=== PATIENT | male | born 1985 | race American Indian/Alaskan Native ===

== ENCOUNTER 2019-04-14 12:57 | Emergency (ER) | payer SELFPAY ==
[2019-04-14 13:55] VITALS: BP 109/59
--- NOTE | 2019-04-14 15:39 | Emergency Department Report ---
- General Chief Complaint: Upper Respiratory Infection Stated Complaint: CHEST COLD Time Seen by Provider: 04/14/19 15:13 Source: patient Mode of arrival: Ambulatory Limitations: No Limitations - History of Present Illness Initial Comments: Patient is a 34-year-old male who has a history of smoking who is presenting with a cough. Patient states cough productive of yellow-green sputum. He's had subjective fevers and chills. Cough has been present for week and a half. Patient denies any neck stiffness or throat nausea vomiting or diarrhea. - Related Data Previous Rx's Medication Instructions Recorded Last Taken Type Albuterol Sulfate [Ventolin HFA] 2 puff IH Q6H PRN #1 hfa.aer.ad 09/25/16 Unknown Rx Ibuprofen [Motrin] 600 mg PO Q8H PRN #15 tablet 09/25/16 Unknown Rx guaiFENesin/CODEINE [Robitussin AC] 10 ml PO BID PRN #100 ml 09/25/16 Unknown Rx ALBUTEROL Inhaler (OR & NICU) 2 puff IH QID PRN #1 inhalation 04/14/19 Unknown Rx [ProAir HFA Inhaler] Azithromycin [Zithromax Z-DELVIN] 250 mg PO DAILY #6 tablet 04/14/19 Unknown Rx Benzonatate [Tessalon Perles] 100 mg PO Q8HR #10 capsule 04/14/19 Unknown Rx predniSONE [Deltasone] 20 mg PO QDAY #5 tab 04/14/19 Unknown Rx Allergies Allergy/AdvReac Type Severity Reaction Status Date / Time No Known Allergies Allergy Verified 04/14/19 12:59 ED Review of Systems ROS: Stated complaint: CHEST COLD Other details as noted in HPI Comment: All other systems reviewed and negative ED Past Medical Hx - Past Medical History Previous Medical History?: Yes Hx Headaches / Migraines: Yes - Surgical History Past Surgical History?: No - Social History Smoking Status: Current Some Day Smoker Substance Use Type: Marijuana - Medications Home Medications: Home Medications Medication Instructions Recorded Confirmed Last Taken Type Albuterol Sulfate [Ventolin HFA] 2 puff IH Q6H PRN #1 hfa.aer.ad 09/25/16 Unknown Rx Ibuprofen [Motrin] 600 mg PO Q8H PRN #15 tablet 09/25/16 Unknown Rx guaiFENesin/CODEINE [Robitussin AC] 10 ml PO BID PRN #100 ml 09/25/16 Unknown Rx ALBUTEROL Inhaler (OR & NICU) 2 puff IH QID PRN #1 inhalation 04/14/19 Unknown Rx [ProAir HFA Inhaler] Azithromycin [Zithromax Z-DELVIN] 250 mg PO DAILY #6 tablet 04/14/19 Unknown Rx Benzonatate [Tessalon Perles] 100 mg PO Q8HR #10 capsule 04/14/19 Unknown Rx predniSONE [Deltasone] 20 mg PO QDAY #5 tab 04/14/19 Unknown Rx ED Physical Exam - General Limitations: No Limitations General appearance: alert, in no apparent distress - Head Head exam: Present: atraumatic, normocephalic - Eye Eye exam: Present: normal appearance - ENT ENT exam: Present: mucous membranes moist - Neck Neck exam: Present: normal inspection - Respiratory Respiratory exam: Present: normal lung sounds bilaterally, rhonchi. Absent: respiratory distress, wheezes, rales - Cardiovascular Cardiovascular Exam: Present: regular rate, normal rhythm, normal heart sounds. Absent: systolic murmur, diastolic murmur, rubs, gallop - GI/Abdominal GI/Abdominal exam: Present: soft, normal bowel sounds. Absent: distended, tenderness, guarding, rebound - Rectal Rectal exam: Present: deferred - Extremities Exam Extremities exam: Present: normal inspection - Back Exam Back exam: Present: normal inspection - Neurological Exam Neurological exam: Present: alert, oriented X3 - Psychiatric Psychiatric exam: Present: normal affect, normal mood - Skin Skin exam: Present: warm, dry, intact, normal color. Absent: rash ED Course Vital Signs 04/14/19 13:53 Temperature 98.0 F Pulse Rate 67 Respiratory 18 Rate Blood Pressure 109/59 [Right] O2 Sat by Pulse 100 Oximetry ED Medical Decision Making - Medical Decision Making Patient is a 34-year-old [place] male presented with productive cough and subjective fevers and has a history of smoking. Patient is treated for smoker's bronchitis. Patient given a Z-Delvin and prednisone and albuterol inhaler be discharged home. Critical care attestation.: If time is entered above; I have spent that time in minutes in the direct care of this critically ill patient, excluding procedure time. ED Disposition Clinical Impression: Smoker Acute bronchitis Qualifiers: Bronchitis organism: unspecified organism Qualified Code(s): J20.9 - Acute bronchitis, unspecified Disposition: DC-01 TO HOME OR SELFCARE Is pt being admited?: No Does the pt Need Aspirin: No Condition: Stable Instructions: Acute Bronchitis (ED) Referrals: DYLAN KERNS MD [Primary Care Provider] - 3-5 Days Time of Disposition: 15:39
== END 2019-04-14 15:50 | disposition home or self-care (01) ==
LOC: ED 12:57
DX: J20.9 Acute bronchitis, unspecified (principal); G43.909 Migraine, unspecified, not intractable, without status migrainosus; F17.200 Nicotine dependence, unspecified, uncomplicated; F12.10 Cannabis abuse, uncomplicated
CPT/HCPCS: 99282

== ENCOUNTER 2021-06-05 10:34 | Emergency (ER) | payer SELFPAY ==
[2021-06-05] MEDS ORDERED: ASPIRIN 325 MG TAB PO ONE (10:48)
[2021-06-05] MEDS ORDERED: hydrOXYzine HCL 25 MG TAB PO ONE (10:48)
[2021-06-05 10:49] VITALS: BP 111/43
--- NOTE | 2021-06-05 10:51 | Emergency Department Report ---
ED Chest Pain HPI - General Chief Complaint: Chest Pain Stated Complaint: CHEST PAIN Time Seen by Provider: 06/05/21 10:47 Source: patient Mode of arrival: Ambulatory Limitations: No Limitations - History of Present Illness Initial Comments: Patient is a 36-year-old male who presents emergency room with complaints of left-sided chest pain that began yesterday morning. Patient states that he has been working a lot and has had a lot of increased stress. He states he does do lifting at his job. He states his pain is worse with palpation and movement. He states that he also feels anxious as he has had increased stress. He states he has had similar symptoms before when his girlfriend had a miscarriage. He denies any radiation of the pain, shortness of breath, diaphoresis, nausea, vomiting, cough, fever, leg swelling, calf pain. He denies any recent travel or recent surgeries. PMHx migraines. No allergies to medications. He endorses tobacco and marijuana use. He states that his mother had an MD in her 40s. - Related Data Previous Rx's Medication Instructions Recorded Last Taken Type Albuterol Sulfate [Ventolin HFA] 2 puff IH Q6H PRN #1 hfa.aer.ad 09/25/16 Unknown Rx Ibuprofen [Motrin] 600 mg PO Q8H PRN #15 tablet 09/25/16 Unknown Rx guaiFENesin/CODEINE [Robitussin AC] 10 ml PO BID PRN #100 ml 09/25/16 Unknown Rx Albuterol Mdi (or & Nicu Only) 2 puff IH QID PRN #1 inhalation 04/14/19 Unknown Rx [ProAir HFA Inhaler] Azithromycin [Zithromax Z-DELVIN] 250 mg PO DAILY #6 tablet 04/14/19 Unknown Rx Benzonatate [Tessalon Perles] 100 mg PO Q8HR #10 capsule 04/14/19 Unknown Rx predniSONE [Deltasone] 20 mg PO QDAY #5 tab 04/14/19 Unknown Rx Naproxen 375 mg PO BID PRN #14 tablet 06/05/21 Unknown Rx Allergies Allergy/AdvReac Type Severity Reaction Status Date / Time No Known Allergies Allergy Verified 04/14/19 12:59 Heart Score - HEART Score History: Slightly suspicious EKG: Normal Age: < 45 Risk factors: 1-2 risk factors Troponin: < normal limit HEART Score: 1 - EKG Read Time Time EKG Completed: 10:54 EKG Read Time: 11:05 ED Review of Systems ROS: Stated complaint: CHEST PAIN Other details as noted in HPI Comment: All other systems reviewed and negative ED Past Medical Hx - Past Medical History Previous Medical History?: Yes Hx Headaches / Migraines: Yes - Surgical History Past Surgical History?: No - Social History Smoking Status: Current Some Day Smoker Substance Use Type: Marijuana - Medications Home Medications: Home Medications Medication Instructions Recorded Confirmed Last Taken Type Albuterol Sulfate [Ventolin HFA] 2 puff IH Q6H PRN #1 hfa.aer.ad 09/25/16 Unknown Rx Ibuprofen [Motrin] 600 mg PO Q8H PRN #15 tablet 09/25/16 Unknown Rx guaiFENesin/CODEINE [Robitussin AC] 10 ml PO BID PRN #100 ml 09/25/16 Unknown Rx Albuterol Mdi (or & Nicu Only) 2 puff IH QID PRN #1 inhalation 04/14/19 Unknown Rx [ProAir HFA Inhaler] Azithromycin [Zithromax Z-DELVIN] 250 mg PO DAILY #6 tablet 04/14/19 Unknown Rx Benzonatate [Tessalon Perles] 100 mg PO Q8HR #10 capsule 04/14/19 Unknown Rx predniSONE [Deltasone] 20 mg PO QDAY #5 tab 04/14/19 Unknown Rx Naproxen 375 mg PO BID PRN #14 tablet 06/05/21 Unknown Rx ED Physical Exam - General Limitations: No Limitations General appearance: alert, in no apparent distress - Head Head exam: Present: atraumatic, normocephalic - Eye Eye exam: Present: normal appearance - ENT ENT exam: Present: mucous membranes moist - Respiratory Respiratory exam: Present: normal lung sounds bilaterally, chest wall tenderness (left sided anterior chest wall ttp, no crepitus, no deformity). Absent: respiratory distress, wheezes, rales, rhonchi, stridor, accessory muscle use, decreased breath sounds, prolonged expiratory - Cardiovascular Cardiovascular Exam: Present: regular rate, normal rhythm, normal heart sounds - Neurological Exam Neurological exam: Present: alert, oriented X3 - Psychiatric Psychiatric exam: Present: normal affect, normal mood - Skin Skin exam: Present: warm, dry, intact ED Course Vital Signs 06/05/21 10:47 Temperature 97.4 F L Pulse Rate 74 Respiratory 16 Rate Blood Pressure 111/43 [Left] O2 Sat by Pulse 97 Oximetry EARL score - Earl Score Age > 65: (0) No Aspirin use within the Past 7 Days: (0) No 3 or more CAD Risk Factors: (0) No 2 or more Angina events in past 24 hrs: (0) No Known CAD with more than 50% Stenosis: (0) No Elevated Cardiac Markers: (0) No ST Deviation Greater than 0.5mm: (0) No EARL Score: 0 ED Medical Decision Making - Lab Data Result diagrams: 06/05/21 11:02 06/05/21 11:02 Lab Results 06/05/21 06/05/21 Range/Units 11:02 11:02 WBC 4.6 (4.5-11.0) K/mm3 RBC 4.94 (3.65-5.03) M/mm3 Hgb 14.1 (11.8-15.2) gm/dl Hct 43.6 (35.5-45.6) % MCV 88 (84-94) fl MCH 29 (28-32) pg MCHC 32 (32-34) % RDW 13.9 (13.2-15.2) % Plt Count 260 (140-440) K/mm3 Lymph % (Auto) 42.9 H (13.4-35.0) % [place] % (Auto) 6.8 (0.0-7.3) % Eos % (Auto) 4.1 (0.0-4.3) % Baso % (Auto) 1.4 (0.0-1.8) % Lymph # (Auto) 2.0 (1.2-5.4) K/mm3 [place] # (Auto) 0.3 (0.0-0.8) K/mm3 Eos # (Auto) 0.2 (0.0-0.4) K/mm3 Baso # (Auto) 0.1 (0.0-0.1) K/mm3 Seg Neutrophils % 44.8 (40.0-70.0) % Seg Neutrophils # 2.1 (1.8-7.7) K/mm3 Sodium 142 (137-145) mmol/L Potassium 4.0 (3.6-5.0) mmol/L Chloride 106.5 (98-107) mmol/L Carbon Dioxide 25 (22-30) mmol/L Anion Gap 15 mmol/L BUN 11 (9-20) mg/dL Creatinine 1.1 (0.8-1.3) mg/dL Estimated GFR > 60 ml/min BUN/Creatinine Ratio 10 % Glucose 82 (75-100) mg/dL Calcium 9.2 (8.4-10.2) mg/dL Total Bilirubin 0.60 (0.1-1.2) mg/dL AST 19 (5-40) units/L ALT 14 (7-56) units/L Alkaline Phosphatase 62 (35-129) units/L Troponin T < 0.010 (0.00-0.029) ng/mL Total Protein 7.0 (6.3-8.2) g/dL Albumin 4.0 (3.9-5) g/dL Albumin/Globulin Ratio 1.3 % - EKG Data EKG shows normal: sinus rhythm, axis, intervals, QRS complexes, ST-T waves Rate: normal - EKG Data When compared to previous EKG there are: previous EKG unavailable - Radiology Data Radiology results: report reviewed Ordering Physician: KAYA ORTIZ Date of Service: 06/05/21 Procedure(s): XR chest routine 2V Accession Number(s): [id number] cc: KAYA ORTIZ Fluoro Time In Minutes: XR chest routine 2V INDICATION / CLINICAL INFORMATION: CP. COMPARISON: 09/25/2016 FINDINGS: SUPPORT DEVICES: None. HEART /PULMONARY VASCULATURE: No significant abnormality. LUNGS / PLEURA: No significant pulmonary or pleural abnormality. No pneumothorax. ADDITIONAL FINDINGS: No significant additional findings. IMPRESSION: 1. No acute findings. Signer Name: Meryl Berger MD Signed: 06/05/2021 11:20 AM Workstation Name: [id number] Transcribed By: JS Dictated By: MERYL BERGER MD Electronically Authenticated By: MERYL BERGER MD Signed Date/Time: 06/05/211119 DD/ 19 TD/TT: - Medical Decision Making Patient is a 36-year-old male who presents emergency room with complaints of left-sided chest pain that began yesterday morning. Patient states that he has been working a lot and has had a lot of increased stress. He states he does do lifting at his job. He states his pain is worse with palpation and movement. He states that he also feels anxious as he has had increased stress. He states he has had similar symptoms before when his girlfriend had a miscarriage. He denies any radiation of the pain, shortness of breath, diaphoresis, nausea, vomiting, cough, fever, leg swelling, calf pain. He denies any recent travel or recent surgeries. PMHx migraines. No allergies to medications. He endorses tobacco and marijuana use. He states that his mother had an MD in her 40s. Heart score is 1, EARL score 0, low risk for cardiac event. PERC criteria nega tive for PE, PE unlikely. Vitals are stable. On exam:left sided anterior chest wall ttp, no crepitus, no deformity. EKG is within normal limits. Chest x-ray with no acute process. Labs are normal. Troponin is negative. symptoms have been occurring for 24 hours, the up to date medication literature recommends EKG and one troponin. Patient given aspirin and hydroxyzine while in the emergency department and symptoms improved and he was feeling much better and ready to go home. Patient will be referred to outpatient cardiology due to family history. Patient will be referred to the [facility] regarding anxiety. He denies any SI or HI. Discussed return precautions with patient and the importance of outpatient follow-up. Advised patient Please take medication as prescribed as needed. Follow-up with primary care doctor. Follow-up with a [facility] for anxiety. Follow-up with a dental surgeon. Return to emergency room for any new or worsening symptoms. Critical care attestation.: If time is entered above; I have spent that time in minutes in the direct care of this critically ill patient, excluding procedure time. ED Disposition Clinical Impression: Anxiety, Tobacco use Chest pain Qualifiers: Chest pain type: unspecified Qualified Code(s): R07.9 - Chest pain, unspecified Disposition: 01 HOME / SELF CARE / HOMELESS Is pt being admited?: No Does the pt Need Aspirin: No Condition: Stable Instructions: Nonspecific Chest Pain, Adult, Managing Anxiety, Adult, Steps to Quit Smoking Additional Instructions: Please take medication as prescribed as needed. Follow-up with primary care doctor. Follow-up with a [facility] for anxiety. Follow-up with a dental surgeon. Return to emergency room for any new or worsening symptoms. Prescriptions: Naproxen 375 mg PO BID PRN #14 tablet PRN Reason: pain Referrals: [facility] [Outside] - 3-5 Days DOLLY YEBOAH [Staff Physician] - 3-5 Days (cardiology) KARLA BENAVIDES MD [Staff Physician] - 3-5 Days (internal medicine/primary care) Forms: Work/School Release Form(ED) Time of Disposition: 11:48 Print Language: BURKINAN
[2021-06-05 11:18] LABS: Basophils # (Auto) 0.1 K/mm3 (0.0-0.1); Basophils % (Auto) 1.4 % (0.0-1.8); Eosinophils # (Auto) 0.2 K/mm3 (0.0-0.4); Eosinophils % (Auto) 4.1 % (0.0-4.3); Hematocrit 43.6 % (35.5-45.6); Hemoglobin 14.1 gm/dl (11.8-15.2); Lymphocytes % (Auto) 42.9 % (13.4-35.0); Mean Corpuscular HGB Conc 32 % (32-34); Mean Corpuscular Volume 88 fl (84-94); Monocytes # (Auto) 0.3 K/mm3 (0.0-0.8); Monocytes % (Auto) 6.8 % (0.0-7.3); Platelet Count 260 K/mm3 (140-440); Red Blood Count 4.94 M/mm3 (3.65-5.03); Red Cell Distribution Width 13.9 % (13.2-15.2)
--- NOTE | 2021-06-05 11:25 | XRay Report ---
XR chest routine 2V INDICATION / CLINICAL INFORMATION: CP. COMPARISON: 09/25/2016 FINDINGS: SUPPORT DEVICES: None. HEART /PULMONARY VASCULATURE: No significant abnormality. LUNGS / PLEURA: No significant pulmonary or pleural abnormality. No pneumothorax. ADDITIONAL FINDINGS: No significant additional findings. IMPRESSION: 1. No acute findings. Signer Name: Abdias Berger MD Signed: 06/05/2021 11:20 AM Workstation Name: [id number]
[2021-06-05 11:45] LABS: Alanine Aminotransferase 14 units/L (7-56); BUN/Creatinine Ratio 10; Blood Urea Nitrogen 11 mg/dL (9-20); Calcium 9.2 mg/dL (8.4-10.2); Hemolysis Index 11
--- NOTE | 2021-06-06 14:12 | Electrocardiograph Report ---
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
== END 2021-06-05 11:57 | disposition home or self-care (01) ==
LOC: ED 10:34
DX: R07.9 Chest pain, unspecified (principal); F41.9 Anxiety disorder, unspecified; Z72.0 Tobacco use; F12.90 Cannabis use, unspecified, uncomplicated
CPT/HCPCS: 36415; 71046; 80053; 84484; 85025; 93005; 99283

== ENCOUNTER 2022-03-04 21:26 | Emergency (ER) | payer SELFPAY ==
--- NOTE | 2022-03-05 08:39 | Emergency Department Report ---
Minor Respiratory - HPI Chief Complaint: Upper Respiratory Infection Stated Complaint: BREATHING /COUGH Time Seen by Provider: 03/05/22 07:52 Duration: Today Pain Location: Nose Severity: mild Minor Respiratory: Yes Rhinorrhea, Yes Able to Tolerate Fluids, Yes Cough, No Sore Throat, No Ear Pain, No Sick Contacts, No Hemoptysis, No Chest Pain, No Shortness of Breath, No Fever ED Review of Systems ROS: Stated complaint: BREATHING /COUGH Other details as noted in HPI Constitutional: chills ENT: as per HPI, congestion. denies: throat pain Respiratory: cough. denies: wheezing Cardiovascular: denies: chest pain, palpitations, dyspnea on exertion, orthopnea Gastrointestinal: denies: abdominal pain, nausea, vomiting Genitourinary: denies: urgency, dysuria Musculoskeletal: denies: back pain Skin: denies: rash, lesions Neurological: denies: headache, weakness ED Past Medical Hx - Past Medical History Previous Medical History?: Yes Hx Headaches / Migraines: Yes - Surgical History Past Surgical History?: No - Social History Smoking Status: Current Every Day Smoker Substance Use Type: Alcohol, Marijuana - Medications Home Medications: Home Medications Medication Instructions Recorded Confirmed Last Taken Type Albuterol Sulfate [Ventolin HFA] 2 puff IH Q6H PRN #1 hfa.aer.ad 09/25/16 Unknown Rx Ibuprofen [Motrin] 600 mg PO Q8H PRN #15 tablet 09/25/16 Unknown Rx guaiFENesin/CODEINE [Robitussin AC] 10 ml PO BID PRN #100 ml 09/25/16 Unknown Rx Albuterol Mdi (or & Nicu Only) 2 puff IH QID PRN #1 inhalation 04/14/19 Unknown Rx [ProAir HFA Inhaler] Azithromycin [Zithromax Z-DELVIN] 250 mg PO DAILY #6 tablet 04/14/19 Unknown Rx Benzonatate [Tessalon Perles] 100 mg PO Q8HR #10 capsule 04/14/19 Unknown Rx predniSONE [Deltasone] 20 mg PO QDAY #5 tab 04/14/19 Unknown Rx Naproxen 375 mg PO BID PRN #14 tablet 06/05/21 Unknown Rx Minor Respiratory Exam - Exam General: Vital signs noted. No distress. Alert and acting appropriately. HEENT: Yes Rhinorrhea, No Pharyngeal Erythema, No Pharyngeal Exudates, No Moist Mucous Membranes, No Conjuctival Injection, No Frontal Tenderness, No Maxillary Tenderness Neck: No Adenopathy, No Supple Lungs: Yes Good Air Exchange, Yes Cough, No Wheezes, No Ronchi, No Stridor, No Labored Respirations, No Retractions, No Use of Accessory Muscles, No Other Abnormal Lung Sounds Heart: No Regular, No Murmur Abdomen: No Tenderness, No Peritoneal Signs, No Normal Bowel Sounds Skin: No Rash, No Edema Neurologic: Alert and oriented, no deficits. Musculoskeletal: Unremarkable. ED Course Vital Signs 03/04/22 22:45 Temperature 98.5 F Pulse Rate 82 Respiratory 18 Rate Blood Pressure 117/65 O2 Sat by Pulse 97 Oximetry ED Medical Decision Making - Medical Decision Making 37-year-old male pr viral, esents to the emergency department with cough runny nose x1 day. Cough is dry nonproductive, with runny nose. No sore throat, no headache no fever no chills no shortness of breath no wheezing no dyspnea. No history of asthma or COPD. Symptoms are most likely viral. Discharge home with supportive therapy, washing, mask wearing fluids rest with understanding of return precautions. Critical care attestation.: If time is entered above; I have spent that time in minutes in the direct care of this critically ill patient, excluding procedure time. ED Disposition Clinical Impression: URI (upper respiratory infection) Disposition: 01 HOME / SELF CARE / HOMELESS Is pt being admited?: No Does the pt Need Aspirin: No Condition: Stable Instructions: Cough, Adult, [id number], Viral Respiratory Infection Referrals: MARY SPENCER MD [Primary Care Provider] - 3-5 Days KARLA BENAVIDES MD [Staff Physician] - 3-5 Days
[2022-03-05 09:16] VITALS: BP 136/87
== END 2022-03-05 09:16 | disposition home or self-care (01) ==
LOC: ED 21:26
DX: J06.9 Acute upper respiratory infection, unspecified (principal); G43.909 Migraine, unspecified, not intractable, without status migrainosus; F17.200 Nicotine dependence, unspecified, uncomplicated
CPT/HCPCS: 99282